=== PATIENT | male | born 1960 | race Caucasian/White ===

== ENCOUNTER 2024-09-23 06:48 | Day surgery (SDC) | payer OTHER ==
[2024-09-18 09:58] VITALS: BMI 30.6
[2024-09-23] MEDS ORDERED: Fentanyl 100 MCG/2 ML VIAL ONE ×2 (06:49→07:45)
[2024-09-23] MEDS ORDERED: PROPOFOL 0 ML ONE (06:50)
[2024-09-23] MEDS ORDERED: Dexmedetomidine 200 MCG/2 ML VIAL ONE (06:52)
[2024-09-23] MEDS ORDERED: Atropine Sulfate 0.4 mg/1 ml Vial ONE (06:52)
[2024-09-23] MEDS ORDERED: Ondansetron PF 4 MG/2 ML Vial ONE (07:40)
[2024-09-23] MEDS ORDERED: Lidocaine 1% PF 5 ML VIAL ONE ×2 (07:40→09:38)
[2024-09-23] MEDS ORDERED: SUGAMMADEX SODIUM 200 MG/2 ML VIAL ONE (07:40)
[2024-09-23] MEDS ORDERED: Rocuronium Bromide 10 MG/ML (10ML VIAL) ONE (07:40)
[2024-09-23] MEDS ORDERED: Dexamethasone 4 mg/ml Vial ONE (07:40)
[2024-09-23] MEDS ORDERED: PROPOFOL 40 ML ONE (07:41)
[2024-09-23] MEDS ORDERED: EPINEPHrine 1 MG/ML VIAL ONE (07:46)
[2024-09-23] MEDS ORDERED: Sevoflurane 250 ML INH ANEST BOTTLE ONE (07:46)
[2024-09-23] MEDS ORDERED: Lidocaine 1% w/Epinephrine 1:200K 30 ML VIAL ONE (07:46)
[2024-09-23] MEDS ORDERED: Vancomycin 1 GM VIAL ONE (07:46)
[2024-09-23] MEDS ORDERED: ePHEDrine Sulfate 50 MG/10 ML VIAL ONE (07:53)
[2024-09-23] MEDS ORDERED: CEFAZOLIN 1 GM VIAL ONE (08:23)
[2024-09-23] MEDS ORDERED: Glycopyrrolate 0.2 MG/ML 5 ML SYRINGE ONE (08:23)
[2024-09-23] MEDS ORDERED: PROPOFOL 20 ML ONE (09:43)
== END 2024-09-23 12:10 | disposition home or self-care (01) ==
LOC: CSHSDC 06:48
PROVIDERS: ATTEND Otolaryngology Otolaryngic Allergy
PROC: 00HE0MZ Insertion of Neurostimulator Lead into Cranial Nerve, Open Approach (ICD-10-PCS; principal; 2024-09-23)
PROC: 0JH60DZ Insertion of Multiple Array Stimulator Generator into Chest Subcutaneous Tissue and Fascia, Open Approach (ICD-10-PCS; principal; 2024-09-23)
DX: G47.33 Obstructive sleep apnea (adult) (pediatric) (principal); E78.5 Hyperlipidemia, unspecified; F41.9 Anxiety disorder, unspecified; Z79.82 Long term (current) use of aspirin; Z79.899 Other long term (current) drug therapy
CPT/HCPCS: 70360; 71045; C1787; C1820; C1898; J0171; J0461; J0690; J1100; J2405; J2704; J3010; J3370